=== PATIENT | female | born 1995 | race Caucasian/White ===

== ENCOUNTER 2021-05-20 07:10 | Inpatient (IN) ==
[2021-05-20] MEDS ORDERED: OXYTOCIN 30 UNITS/500 ML BAG IV PRN ×2 (07:21→08:03)
[2021-05-20] MEDS: LACTATED RINGER'S 1,000 ML IV PRN ×4 (07:59→22:35)
--- NOTE | 2021-05-20 08:03 | Labor Progress Brief Note ---
Date of Service May 20, 2021 Subjective Reason For Note: Routine Evaluation and Other Admit Note 25 F P0000 at 40.3 weeks admitted for IOL for post-dates. GBS is negative. Covid is negative. FHT Cat 1. Cervix is 2/80/-2/vertex/anterior/soft. EFW 7.5-8 lbs. Will admit and start Oxytocin for induction. Anticipate normal delivery. Assessment & Plan Admission and Anticipated Discharge Date Admission Date: May 20, 2021 Results & Data ([facility]) Vital Signs (Past 12 Hours) Vital Signs Pulse BP 05/20/21 07:35 101 H 142/84 H 05/20/21 07:23 93 H 148/90 H
[2021-05-20 08:04] LABS: Hematocrit (blood only) 34.8 % (37-47); Mean Corpuscular Hemoglobin 32.9 pg (25-34); Mean Corpuscular Hgb Conc 34.5 g/dL (32-36); Mean Corpuscular Volume 95.3 fL (80-100); Mean Platelet Volume 10.6 fL (7.4-10.4); Platelet Count 155 K/uL (130-400); RDW Standard Deviation 45.3 fL (36.4-46.3); Red Blood Count 3.65 M/uL (4.2-5.4)
[2021-05-20] MEDS ORDERED: BUTORPHANOL TARTRATE 1 MG/ML VIAL IV PRN (11:51)
[2021-05-20] MEDS ORDERED: BUTORPHANOL TARTRATE 1 MG/ML VIAL ONE (11:55)
--- NOTE | 2021-05-20 16:09 | Labor Progress Brief Note ---
Date of Service May 20, 2021 Assessment & Plan Admission and Anticipated Discharge Date Admission Date: May 20, 2021 Physical Exam Genitourinary: Manual OB Exam: + cervical dilation 4 cm, + cervical effacement 70%, + station -2 and + amniotic fluid clear AROM with Amni-hook clear fluid Results & Data ([facility]) Vital Signs (Past 12 Hours) Vital Signs Temp Pulse Resp BP 05/20/21 16:00 18 05/20/21 15:47 18 05/20/21 15:30 18 05/20/21 15:20 89 145/83 H 05/20/21 15:19 36.8 C 18 05/20/21 15:00 18 05/20/21 14:30 18 05/20/21 14:13 92 H 134/61 05/20/21 14:12 18 05/20/21 14:00 18 05/20/21 13:30 18 05/20/21 13:15 96 H 142/90 H 05/20/21 12:10 18 05/20/21 12:07 92 H 118/67 05/20/21 12:03 86 140/86 05/20/21 11:40 18 05/20/21 11:29 36.6 C 18 05/20/21 11:27 75 135/88 05/20/21 10:40 18 05/20/21 10:36 86 143/89 H 05/20/21 10:10 18 05/20/21 09:40 18 05/20/21 09:31 84 132/85 05/20/21 08:32 87 153/84 H 05/20/21 07:35 101 H 142/84 H 05/20/21 07:23 93 H 148/90 H 05/20/21 07:22 36.7 C 18
[2021-05-20] MEDS ORDERED: fentaNYL citrate 100 MCG/2 ML VIAL ONE (16:28)
[2021-05-20] MEDS ORDERED: ePHEDrine sulfate 50 MG/ML AMP ONE (16:28)
[2021-05-20] MEDS ORDERED: SODIUM CHLORIDE 0.9% INJ 10 ML VIAL ONE (16:28)
[2021-05-20] MEDS ORDERED: BUPIVACAINE 0.25% 30 ML VIAL ONE (16:28)
[2021-05-20] MEDS ORDERED: fentaNYL 2MCG/ML ROPIVACAINE 1.25MG/ML 100 ML BAG EPI ONE (16:29)
--- NOTE | 2021-05-20 17:07 | Anesthesiology Consultation ---
Date of Service May 20, 2021 Assessment & Plan (1) Encounter for pre-operative examination: Chart Review Chart Review: Acceptable Risk for Labor Epidural History Height/Weight Height: 5 ft 2 in Weight: 84.822 kg Allergies Allergy/AdvReac Type Severity Reaction Status Date / Time No Known Allergies Allergy Verified 05/20/21 07:26 Medications Home Medications Medication Instructions Recorded Confirmed Last Taken fluoxetine 10 mg tablet 10 mg PO DAILY 05/19/21 05/20/21 05/19/21 12:00 vits no.124-ferrous fum 1 tab PO DAILY 05/19/21 05/20/21 05/19/21 20:00 27 mg iron-folic acid 800 mcg tablet ( Vitamin) Active Medications Generic Name Dose Route Start Last Admin Trade Name Freq PRN Reason Stop Dose Admin Butorphanol Tartrate 1 mg 05/20/21 11:51 05/20/21 11:57 Butorphanol Tartrate 1 Mg/Ml Vial IV 06/19/21 11:50 1 mg Q2H PRN Administration Pain Lactated Ringer's 1,000 mls @ 125 mls/hr 05/20/21 07:21 05/20/21 17:01 Lr IV 05/22/21 07:20 999 mls/hr .Q8H PRN Administration L&D Protocol Protocol Oxytocin 30 units in 500 mls @ 4 mls/hr 05/20/21 08:03 05/20/21 15:47 Pitocin IV 05/22/21 08:02 0.24 units/hr .Q24H PRN 4 mls/hr Labor Induction/Augmentation Titration Protocol 0.24 UNITS/HR Past Medical History Medical History (Updated 05/20/21 @ 17:07 by Aydin Tidwell MD) Anxiety On prozac Blindness Right eye Depression On prozac Migraine Past Surgical History Surgical History (Updated 05/20/21 @ 17:07 by Aydin Tidwell MD) No significant past surgical history Social History Smoking Status: Current every day smoker tobacco type: e-cigarettes Smoking cigarettes per day: 2.5 Hx Alcohol Use: No Hx Substance Use: No substance use type: does not use Physical Exam Vital Signs Last Vital Signs Temp 36.8 C 05/20/21 15:19 Pulse 105 H 05/20/21 17:02 Resp 18 05/20/21 16:30 BP 145/83 H 05/20/21 15:20 Pulse Ox 100 05/20/21 17:02 Testing Laboratory Results 05/20/21 07:46
[2021-05-20] MEDS ORDERED: ONDANSETRON INJ 2 MG/ML 2 ML VIAL IV PRN (17:35)
[2021-05-20] MEDS ORDERED: NALOXONE HCL 0.4 MG/1 ML VIAL/CARP IV PRN (17:35)
[2021-05-20] MEDS ORDERED: ePHEDrine sulfate 50 MG/ML AMP IV PRN (17:35)
[2021-05-20] MEDS ORDERED: NALOXONE HCL 1 MG in SODIUM CHLORIDE 0.9% 1000ML 1,000 ML IV PRN (17:35)
[2021-05-20] MEDS: fentaNYL 2MCG/ML ROPIVACAINE 1.25MG/ML 100 ML BAG EPI PRN (21:34)
[2021-05-20] MEDS ORDERED: NURSING L&D Epidural Breakthrough Pain Update ONE (21:41)
[2021-05-21] MEDS: fentaNYL 2MCG/ML ROPIVACAINE 1.25MG/ML 100 ML BAG EPI PRN ×2 (01:21→07:36)
[2021-05-21] MEDS: LACTATED RINGER'S 1,000 ML IV PRN (05:34)
[2021-05-21] MEDS ORDERED: LABETALOL HCL 100 MG TAB PO ONE (07:18)
--- NOTE | 2021-05-21 07:55 | Obstetrical Progress Note ---
Date of Service May 21, 2021 Assessment & Plan Admission and Anticipated Discharge Date Admission Date: May 20, 2021 Subjective Late entry from 07:35 Patient is seen and examined Reviewed her records from office GBS negative h/o chlamydia, ANGELA/ repeat negative H/O depression, on Prozac h/o migraines IOL for postdates since yesterday am Progressed to fully dilatation and started pushing about 20 minutes ago On oxytocin at 9 miu/min FHR categ I VE; head at +2 station, small caput, unable to reach fontanelles, patient feels exam Continue to monitor closely Anticipate Results & Data ([facility]) Vital Signs (Past 12 Hours) Vital Signs Temp Pulse Resp BP Pulse Ox 05/21/21 07:49 104 H 96 05/21/21 07:44 107 H 94 05/21/21 07:39 101 H 98 05/21/21 07:34 84 96 05/21/21 07:32 88 153/86 H 05/21/21 07:30 37.0 C 18 05/21/21 07:29 98 H 95 05/21/21 07:28 89 148/85 H 05/21/21 07:24 92 H 99 05/21/21 07:19 96 H 98 05/21/21 07:14 92 H 95 05/21/21 07:09 86 93 05/21/21 07:04 93 H 96 05/21/21 07:03 93 H 170/97 H 05/21/21 07:00 18 05/21/21 06:59 85 97 05/21/21 06:58 89 86 L 05/21/21 06:54 86 95 05/21/21 06:52 96 H 87 L 05/21/21 06:49 86 98 05/21/21 06:47 87 142/68 H 05/21/21 06:44 94 H 97 05/21/21 06:38 101 H 92 05/21/21 06:33 82 131/60 100 05/21/21 06:30 88 18 82 L 05/21/21 06:28 88 92 05/21/21 06:23 90 84 L 05/21/21 06:21 92 H 85 L 05/21/21 06:18 80 100 05/21/21 06:17 80 154/85 H 05/21/21 06:13 83 98 05/21/21 06:08 93 H 93 05/21/21 06:03 84 145/77 H 91 05/21/21 06:00 18 05/21/21 05:59 90 83 L 05/21/21 05:58 87 91 05/21/21 05:53 81 99 05/21/21 05:48 97 H 95 05/21/21 05:47 81 154/83 H 05/21/21 05:43 96 H 87 L 05/21/21 05:42 91 H 85 L 05/21/21 05:38 87 95 05/21/21 05:33 96 H 100 05/21/21 05:31 36.5 C 05/21/21 05:30 18 05/21/21 05:28 103 H 95 05/21/21 05:23 93 H 75 L 05/21/21 05:20 93 H 79 L 05/21/21 05:18 91 H 100 05/21/21 05:17 89 154/86 H 05/21/21 05:12 92 H 100 05/21/21 05:07 101 H 74 L 05/21/21 05:02 89 139/78 97 05/21/21 05:00 18 05/21/21 04:57 87 100 05/21/21 04:54 103 H 82 L 05/21/21 04:52 103 H 100 05/21/21 04:48 99 H 191/102 H 05/21/21 04:47 97 H 98 05/21/21 04:45 103 H 82 L 05/21/21 04:42 89 100 05/21/21 04:37 94 H 86 L 05/21/21 04:33 100 H 173/105 H 05/21/21 04:32 101 H 98 05/21/21 04:31 100 H 82 L 05/21/21 04:30 18 05/21/21 04:27 96 H 92 05/21/21 04:24 92 H 84 L 05/21/21 04:22 89 72 L 05/21/21 04:19 88 154/78 H 05/21/21 04:18 102 H 87 L 05/21/21 04:17 104 H 87 L 05/21/21 04:13 105 H 84 L 05/21/21 04:12 97 H 94 05/21/21 04:07 106 H 94 05/21/21 04:02 106 H 92 05/21/21 04:00 18 05/21/21 03:59 109 H 83 L 05/21/21 03:57 99 H 92 05/21/21 03:53 97 H 84 L 05/21/21 03:52 98 H 95 05/21/21 03:48 103 H 87 L 05/21/21 03:47 105 H 140/69 82 L 05/21/21 03:42 111 H 74 L 05/21/21 03:37 99 H 91 05/21/21 03:36 101 H 87 L 05/21/21 03:33 36.8 C 93 H 138/72 05/21/21 03:32 97 H 96 05/21/21 03:30 18 05/21/21 03:27 112 H 93 05/21/21 03:22 107 H 89 L 05/21/21 03:17 103 H 100 05/21/21 03:12 100 H 98 05/21/21 03:07 110 H 98 05/21/21 03:02 97 H 100 05/21/21 02:57 105 H 74 L 05/21/21 02:56 111 H 81 L 05/21/21 02:52 104 H 93 05/21/21 02:47 105 H 94 05/21/21 02:42 106 H 79 L 05/21/21 02:37 107 H 93 05/21/21 02:32 104 H 98 05/21/21 02:30 18 05/21/21 02:27 116 H 89 L 05/21/21 02:23 108 H 87 L 05/21/21 02:22 108 H 99 05/21/21 02:20 123 H 136/64 05/21/21 02:17 119 H 94 05/21/21 02:12 118 H 96 05/21/21 02:07 107 H 100 05/21/21 02:03 108 H 130/68 05/21/21 02:02 116 H 94 05/21/21 02:00 18 05/21/21 01:57 112 H 96 05/21/21 01:54 107 H 91 05/21/21 01:52 111 H 95 05/21/21 01:48 103 H 133/69 05/21/21 01:47 91 H 96 05/21/21 01:43 112 H 89 L 05/21/21 01:42 113 H 99 05/21/21 01:37 114 H 86 L 05/21/21 01:32 104 H 93 05/21/21 01:30 37.0 C 18 05/21/21 01:27 104 H 99 05/21/21 01:22 103 H 100 05/21/21 01:18 103 H 89 L 05/21/21 01:17 105 H 100 05/21/21 01:12 110 H 100 05/21/21 01:07 99 H 100 05/21/21 01:03 98 H 132/74 05/21/21 01:02 107 H 97 05/21/21 01:00 18 05/21/21 00:57 92 H 97 05/21/21 00:52 94 H 97 05/21/21 00:48 92 H 128/70 05/21/21 00:47 95 H 97 05/21/21 00:42 94 H 99 05/21/21 00:37 98 H 98 05/21/21 00:35 111 H 92 05/21/21 00:32 93 H 140/74 99 05/21/21 00:30 18 05/21/21 00:27 91 H 100 05/21/21 00:22 98 H 100 05/21/21 00:18 93 H 138/78 05/21/21 00:17 94 H 99 05/21/21 00:12 88 99 05/21/21 00:07 98 H 99 05/21/21 00:02 93 H 143/78 H 100 05/21/21 00:00 18 05/20/21 23:57 89 100 05/20/21 23:52 90 100 05/20/21 23:48 92 H 134/72 05/20/21 23:47 91 H 100 05/20/21 23:42 131 H 94 05/20/21 23:37 92 H 99 05/20/21 23:33 91 H 139/82 05/20/21 23:32 89 100 05/20/21 23:30 18 05/20/21 23:27 90 98 05/20/21 23:23 37.0 C 05/20/21 23:22 100 H 100 05/20/21 23:17 99 H 97 05/20/21 23:14 98 H 121/65 05/20/21 23:12 94 H 130/68 99 05/20/21 23:10 107 H 136/75 05/20/21 23:08 103 H 128/73 05/20/21 23:07 98 H 100 05/20/21 23:05 96 H 140/73 05/20/21 23:02 109 H 152/68 H 90 05/20/21 23:00 100 H 18 134/77 05/20/21 22:58 107 H 130/77 05/20/21 22:57 116 H 96 05/20/21 22:56 98 H 121/72 05/20/21 22:54 99 H 127/76 05/20/21 22:52 104 H 124/69 100 05/20/21 22:50 96 H 119/66 05/20/21 22:48 102 H 127/73 05/20/21 22:47 108 H 100 05/20/21 22:46 101 H 125/70 05/20/21 22:44 106 H 128/71 90 05/20/21 22:42 103 H 129/75 100 05/20/21 22:40 100 H 141/80 H 05/20/21 22:39 97 H 136/77 05/20/21 22:37 97 H 98 05/20/21 22:32 98 H 100 05/20/21 22:30 18 05/20/21 22:29 94 H 135/81 05/20/21 22:27 100 H 95 05/20/21 22:22 107 H 100 05/20/21 22:17 97 H 100 05/20/21 22:15 100 H 146/86 H 89 L 05/20/21 22:12 90 98 05/20/21 22:07 95 H 97 05/20/21 22:02 87 98 05/20/21 22:00 18 05/20/21 21:59 106 H 139/85 05/20/21 21:57 91 H 96 05/20/21 21:52 91 H 97 05/20/21 21:47 87 97 05/20/21 21:45 83 140/80 05/20/21 21:42 94 H 97 05/20/21 21:37 96 H 94 05/20/21 21:32 97 H 97 05/20/21 21:30 18 07/21/21 21:29 103 H 130/71 07/21/21 21:27 108 H 98 05/20/21 21:26 101 H 88 L 05/20/21 21:22 93 H 99 05/20/21 21:17 93 H 97 05/20/21 21:14 88 117/62 05/20/21 21:12 93 H 97 05/20/21 21:07 36.8 C 106 H 96 05/20/21 21:02 97 H 95 05/20/21 21:01 93 H 120/70 05/20/21 21:00 18 05/20/21 20:57 93 H 95 05/20/21 20:52 91 H 94 05/20/21 20:47 90 94 05/20/21 20:45 93 H 131/74 05/20/21 20:42 100 H 98 05/20/21 20:39 112 H 90 05/20/21 20:37 100 H 97 05/20/21 20:32 90 96 05/20/21 20:30 18 05/20/21 20:29 86 135/86 05/20/21 20:27 108 H 96 05/20/21 20:22 106 H 93 05/20/21 20:17 90 94 05/20/21 20:15 81 138/84 05/20/21 20:12 87 95 05/20/21 20:09 98 H 92 05/20/21 20:07 88 94 05/20/21 20:02 93 H 95 05/20/21 20:00 86 18 137/83 05/20/21 19:57 97 H 96
[2021-05-21 08:23] LABS: Basophils # (auto) 0.01 K/uL (0-0.2); Basophils % (auto) 0.1 %; Hemoglobin 12.1 g/dL (12.0-16.0); Immature Granulocytes # (auto) 0.06 K/uL (0.00-0.02); Immature Granulocytes % (auto) 0.4 %; Lymphocytes # (auto) 1.02 K/uL (1.2-3.4); Mean Corpuscular Hemoglobin 32.4 pg (25-34); Mean Corpuscular Hgb Conc 33.6 g/dL (32-36); Mean Corpuscular Volume 96.3 fL (80-100); Mean Platelet Volume 10.8 fL (7.4-10.4); Monocytes % (auto) 8.3 %; Neutrophils # (auto) 14.38 K/uL (1.4-6.5); Neutrophils % (auto) 85.2 %; Platelet Count 143 K/uL (130-400); RDW Coefficient of Variation 13.1 % (11.5-14.5); RDW Standard Deviation 45.5 fL (36.4-46.3); Red Blood Count 3.74 M/uL (4.2-5.4); White Blood Count 16.87 K/uL (4.8-10.8)
[2021-05-21 08:42] LABS: Albumin Level 2.5 gm/dl (3.4-5.0); BUN Creatinine Ratio 10.2 (10-20); Calcium 8.2 mg/dl (8.5-10.1); Creatinine Clr Calc Pharmacy 86.7 ml/min; Est GFR (African American) 89.8 ml/min; Est GFR (Non-African American) 77.5 ml/min; Potassium 2.9 mmol/L (3.5-5.1)
[2021-05-21 08:44] LABS: Albumin Globulin Ratio 0.6 (0.9-2); Bilirubin,Total 1.4 mg/dl (0.2-1); Globulin 3.9 gm/dl (2.5-4.0); Total Protein 6.4 gm/dl (6.4-8.2)
[2021-05-21] MEDS ORDERED: MINERAL OIL 30 ML UDC ONE (09:06)
[2021-05-21] MEDS ORDERED: LIDOCAINE 1% LOCAL 20 ML VIAL ONE (09:15)
[2021-05-21] MEDS ORDERED: bisacodyL 10 MG SUPP PR PRN (09:53)
[2021-05-21] MEDS ORDERED: miSOPROStoL 200 MCG TAB PR ONE (09:53)
[2021-05-21] MEDS ORDERED: BENZOCAINE 20% AER SPR 82.5 GM CAN EXT PRN (09:53)
[2021-05-21] MEDS ORDERED: OXYTOCIN 30 UNITS/500 ML BAG IV PRN (09:53)
[2021-05-21] MEDS ORDERED: oxyCODONE/ACETAMINOPHEN 5mg/325mg TAB PO PRN (09:53)
[2021-05-21] MEDS ORDERED: ACETAMINOPHEN 325 MG TAB PO PRN (09:53)
[2021-05-21] MEDS ORDERED: SUPERCREAM 0.870% 15 GM JAR EXT PRN (09:53)
[2021-05-21] MEDS ORDERED: HYDROCORTISONE ACETATE 25 MG SUPP PR PRN (09:53)
[2021-05-21] MEDS ORDERED: MEASLES, MUMPS & RUBELLA VIRUS VIAL SQ ONE (09:53)
[2021-05-21] MEDS ORDERED: DIPHTHERIA/TETANUS/PERTUSSIS 0.5 ML SYR/VIAL IM ONE (09:53)
[2021-05-21] MEDS: POTASSIUM CHLORIDE / WTR 10 MEQ/100 ML PLCT IV SCH ×2 (10:18→11:30)
[2021-05-21] MEDS: METHYLERGONOVINE MALEATE 0.2 MG TAB PO SCH ×4 (10:19→22:23)
--- NOTE | 2021-05-21 10:29 | Anesthesia Procedure Note ---
Date of Service May 21, 2021 Anesthesia Post Epidural Note Vital Signs Vital Signs: Temp Pulse Resp BP Pulse Ox 37.0 C 82 18 131/82 95 05/21/21 07:30 05/21/21 10:21 05/21/21 09:45 05/21/21 10:05/21/21 09:39 Pain Intensity Abdomen: Pain Intensity: 0 Notes Mental Status: alert / awake / arousable Nausea / Vomiting: adequately controlled Pain: adequately controlled Airway Patency, RR, SpO2: stable & adequate BP & HR: stable & adequate Hydration State: stable & adequate Neuraxial Anesthesia: was administered and sensory block is resolving Anesthetic Complications: no major complications apparent and Pt Satisfied with anesthetic care Epidural: Removed without complications and With tip intact
[2021-05-21] MEDS ORDERED: OXYTOCIN 20 UNITS in LACTATED RINGER'S 1,000 ML IV SCH (10:30)
[2021-05-21] MEDS: FLUoxetine HCL 10 MG CAP PO SCH (10:40)
--- NOTE | 2021-05-21 11:11 | Delivery Summary ---
DATE OF DELIVERY: 05/21/2021. TIME: 09:08 a.m. DETAILS OF DELIVERY: The patient was found to be fully dilated and desired to push. She pushed for about 2 hours and delivered the head without difficulty. Shoulders were delivered with minimal traction. Baby was handed off to the mother and baby had terminal meconium. Mouth and nose were suctioned. Cord was clamped x2 and cut and cord blood was obtained. Vagina and perineum were checked for lacerations. There was a second-degree perineal laceration. Rectal exam was done. Excellent sphincter tone was noted and it was confirmed to be second-degree. Gloves were changed. This laceration was repaired with 2-0 Vicryl. First perineal body muscles around the sphincter were brought together to support the sphincter and then vaginal mucosa was repaired with a different 2-0 Vicryl and the skin in a subcuticular fashion. The placenta was found to be in the vagina, delivered spontaneously as intact and complete. Uterus was explored and found to be empty. Lower segment was cleared of all clots and debris. The EBL was 400 mL. Fundus was firm. IV Oxytocin was started and rectal Cytotec tbs were placed. Mom and baby tolerated the procedure well. Sponge, needle, and instrument count was correct x2. Baby was a viable female infant, Apgars 8 and 9, weight is 3644 gr. No complications happened and I was present during whole procedure. Job ID: [id number] [facility]
[2021-05-21] MEDS: IBUPROFEN 600 MG TAB PO PRN (17:52)
[2021-05-21] MEDS ORDERED: POTASSIUM CHLORIDE 20 MEQ/15 ML UDC PO SCH (21:00)
[2021-05-21] MEDS: DOCUSATE SODIUM 100 MG CAP PO SCH (22:23)
[2021-05-22] MEDS: METHYLERGONOVINE MALEATE 0.2 MG TAB PO SCH ×2 (03:46→06:39)
[2021-05-22] MEDS: IBUPROFEN 600 MG TAB PO PRN (06:39)
[2021-05-22] MEDS ORDERED: FERROUS SULFATE 325 MG TAB PO SCH (08:00)
[2021-05-22] MEDS ORDERED: PRENATAL VITAMIN 1 TAB PO SCH (08:00)
[2021-05-22 08:18] LABS: Hematocrit (blood only) 32.1 % (37-47); Hemoglobin 10.6 g/dL (12.0-16.0); Mean Corpuscular Hemoglobin 31.8 pg (25-34); Mean Corpuscular Volume 96.4 fL (80-100); Mean Platelet Volume 10.3 fL (7.4-10.4); Platelet Count 123 K/uL (130-400); RDW Coefficient of Variation 13.3 % (11.5-14.5); RDW Standard Deviation 46.5 fL (36.4-46.3); Red Blood Count 3.33 M/uL (4.2-5.4); White Blood Count 13.61 K/uL (4.8-10.8)
[2021-05-22] MEDS: DOCUSATE SODIUM 100 MG CAP PO SCH (08:36)
[2021-05-22] MEDS: FLUoxetine HCL 10 MG CAP PO SCH (08:58)
[2021-05-22 09:09] LABS: Albumin Globulin Ratio 0.6 (0.9-2); Albumin Level 2.1 gm/dl (3.4-5.0); Bilirubin,Total 0.6 mg/dl (0.2-1); Creatinine Clr Calc Pharmacy 140.3 ml/min; Est GFR (African American) 146.5 ml/min; Est GFR (Non-African American) 126.4 ml/min; Globulin 3.6 gm/dl (2.5-4.0); Potassium 3.4 mmol/L (3.5-5.1); Total Protein 5.7 gm/dl (6.4-8.2)
--- NOTE | 2021-05-22 10:53 | Obstetrical Progress Note ---
Date of Service May 22, 2021 Physical Exam Constitutional WD/WN, vitals as above comfortable doing well plans for d/c today abdomen soft and non-tender fundus firm no edema neg Estelle's for d/c today Results & Data ([facility]) Vital Signs (Past 12 Hours) Vital Signs Temp Pulse Resp BP Pulse Ox 05/22/21 08:00 36.8 C 68 16 125/81 99 05/22/21 03:45 36.6 C 67 18 116/80 05/21/21 23:15 36.7 C 87 18 109/72 Laboratory Results 05/20/21 05/20/21 05/20/21 07:18 07:18 07:46 WBC 13.40 H RBC 3.65 L Hgb 12.0 Hct 34.8 L MCV 95.3 MCH 32.9 MCHC 34.5 RDW Std Deviation 45.3 RDW Coeff of Julio 13.0 Plt Count 155 MPV 10.6 H Immature Gran % (Auto) Neut % (Auto) Lymph % (Auto) Sibley % (Auto) Eos % (Auto) Baso % (Auto) Neut # (Auto) Lymph # (Auto) [place] # (Auto) Eos # (Auto) Baso # (Auto) Immature Gran # (Auto) Sodium Potassium Chloride Carbon Dioxide Anion Gap BUN Creatinine Est Cr Clr Drug Dosing Est GFR ( Amer) Est GFR (Non-Af Amer) BUN/Creatinine Ratio Glucose Fasting Glucose Calcium Total Bilirubin AST ALT Alkaline Phosphatase Total Protein Albumin Globulin Albumin/Globulin Ratio COVID-19 Eval Order Covid19 IDNow [facility] SARS-CoV-2, RNA, NAAT NEGATIVE 05/21/21 05/21/21 05/22/21 07:42 07:42 08:04 WBC 16.87 H 13.61 H RBC 3.74 L 3.33 L Hgb 12.1 10.6 L Hct 36.0 L 32.1 L MCV 96.3 96.4 MCH 32.4 31.8 MCHC 33.6 33.0 RDW Std Deviation 45.5 46.5 H RDW Coeff of Julio 13.1 13.3 Plt Count 143 123 L MPV 10.8 H 10.3 Immature Gran % (Auto) 0.4 Neut % (Auto) 85.2 Lymph % (Auto) 6.0 Sibley % (Auto) 8.3 Eos % (Auto) 0.0 Baso % (Auto) 0.1 Neut # (Auto) 14.38 H Lymph # (Auto) 1.02 L Sibley # (Auto) 1.40 H Eos # (Auto) 0.00 Baso # (Auto) 0.01 Immature Gran # (Auto) 0.06 H Sodium 138 Potassium 2.9 L Chloride 106 Carbon Dioxide 19 L Anion Gap 13.0 H BUN 10 Creatinine 1.02 Est Cr Clr Drug Dosing 86.7 Est GFR ( Amer) 89.8 Est GFR (Non-Af Amer) 77.5 BUN/Creatinine Ratio 10.2 Glucose 98 Fasting Glucose Calcium 8.2 L Total Bilirubin 1.4 H AST 24 ALT 17 Alkaline Phosphatase 229 H Total Protein 6.4 Albumin 2.5 L Globulin 3.9 Albumin/Globulin Ratio 0.6 L COVID-19 Eval Order SARS-CoV-2, RNA, NAAT 05/22/21 08:04 WBC RBC Hgb Hct MCV MCH MCHC RDW Std Deviation RDW Coeff of Julio Plt Count MPV Immature Gran % (Auto) Neut % (Auto) Lymph % (Auto) Sibley % (Auto) Eos % (Auto) Baso % (Auto) Neut # (Auto) Lymph # (Auto) S[place]y # (Auto) Eos # (Auto) Baso # (Auto) Immature Gran # (Auto) Sodium 137 Potassium 3.4 L D Chloride 108 H Carbon Dioxide 22 Anion Gap 8.0 BUN 13 Creatinine 0.63 D Est Cr Clr Drug Dosing 140.3 Est GFR ( Amer) 146.5 Est GFR (Non-Af Amer) 126.4 BUN/Creatinine Ratio Glucose Fasting Glucose 72 Calcium 8.0 L Total Bilirubin 0.6 D AST 38 H ALT 20 Alkaline Phosphatase 152 H Total Protein 5.7 L Albumin 2.1 L Globulin 3.6 Albumin/Globulin Ratio 0.6 L COVID-19 Eval Order SARS-CoV-2, RNA, NAAT
[2021-05-22] MEDS ORDERED: bisacodyL 5 MG TABEC PO SCH (20:00)
== END 2021-05-22 13:20 | disposition home or self-care (01) | DRG 807 ==
LOC: 4S1 07:10 → 4S2 05-21 12:30